=== PATIENT | male | born 2000 | race Caucasian/White ===

== ENCOUNTER 2020-12-20 03:22 | Emergency (ER) | payer SELFPAY ==
[~2020-12-20] VITALS: Ht 172.7 cm; Wt 130.0 kg
[2020-12-20 05:16] LABS: CLARITY URINE CLOUDY (CLEAR); COLOR URINE YELLOW (YELLOW); KETONES URINE TRACE (NEGATIVE); LEUKOCYTE ESTERASE URINE NEGATIVE (NEGATIVE); NITRITE URINE NEGATIVE (NEGATIVE); OCCULT BLOOD URINE NEGATIVE (NEGATIVE); PROTEIN URINE 2+ (NEGATIVE); SPECIFIC GRAVITY URINE 1.028 (1.005-1.030)
[2020-12-20 05:34] LABS: *AMPHETAMINES SCREEN URINE NEGATIVE (NEGATIVE); *BARBITURATES SCREEN URINE NEGATIVE (NEGATIVE); CANNABINOID URINE SCREEN NEGATIVE (NEGATIVE); PHENCYCLIDINE URINE SCREEN NEGATIVE (NEGATIVE)
[2020-12-20 05:35] LABS: *BENZODIAZEPINES SCREEN URINE NEGATIVE (NEGATIVE); *COCAINE SCREEN URINE NEGATIVE (NEGATIVE); METHADONE URINE SCREEN NEGATIVE (NEGATIVE); OPIATES URINE SCREEN NEGATIVE (NEGATIVE)
[2020-12-20 05:47] LABS: BASOPHILS % 0.7 % (0.0-2.0); EOSINOPHILS % 0.1 % (0.0-5.0); HEMATOCRIT. 48.8 % (42.0-52.0); HEMOGLOBIN. 16.7 g/dL (14.0-18.0); LYMPHOCYTES % 9.6 % (20.0-50.0); MEAN CORPUSCULAR HEMOGLOBIN 30.3 pg (28.0-32.0); MEAN CORPUSCULAR VOLUME 88.6 fL (80.0-94.0); MEAN PLATELET VOLUME 9.3 fl (7.4-10.4); MONOCYTES % 5.2 % (2.0-8.0); NEUTROPHILS % 84.4 % (40.0-76.0); PLATELET 250 x1000/uL (130-400); RED BLOOD CELL COUNT 5.51 mill/uL (4.7-6.1); RED CELL DISTRIBUTION WIDTH 13.3 % (11.6-14.6)
[2020-12-20 05:56] LABS: CHLORIDE 106 mEq/L (98-107)
[2020-12-20 06:02] LABS: ETHANOL BLOOD < 10 mg/dL
[2020-12-20] MEDS: OLANZAPINE 5MG TABLET PO SCH (10:43)
[2020-12-21] MEDS: OLANZAPINE 5MG TABLET PO SCH (09:24)
[2020-12-22] MEDS: OLANZAPINE 5MG TABLET PO SCH (09:57)
[2020-12-23] MEDS: OLANZAPINE 5MG TABLET PO SCH (10:16)
[2020-12-24] MEDS ORDERED: OLANZAPINE 5MG TABLET PO SCH (09:30)
[2020-12-24] MEDS: OLANZAPINE 5MG TABLET PO SCH ×2 (12:06→17:37)
[2020-12-25] MEDS: OLANZAPINE 5MG TABLET PO SCH (08:40)
[2020-12-25 16:17] VITALS: BP 124/66
== END 2020-12-25 16:21 | disposition home or self-care (01) ==
LOC: ER 03:22
DX: R46.2 Strange and inexplicable behavior (principal); R44.0 Auditory hallucinations; Z20.822 Contact with and (suspected) exposure to COVID-19; R45.1 Restlessness and agitation; R00.0 Tachycardia, unspecified; F43.9 Reaction to severe stress, unspecified; Z73.6 Limitation of activities due to disability; Z75.1 Person awaiting admission to adequate facility elsewhere
CPT/HCPCS: 36415; 80053; 80305; 80307; 80320; 80329; 81003; 84443; 85025; 99285; C9803; U0003; U0005; G0480

== ENCOUNTER 2023-02-03 21:19 | Emergency (ER) | payer MEDICAID, OTHER ==
[~2023-02-03] VITALS: Ht 170.2 cm; Wt 70.0 kg
[2023-02-03 21:27] VITALS: O2SAT 99
[2023-02-03] MEDS ORDERED: OLANZAPINE 10 MG/VIAL IM ONE (22:30)
[2023-02-03 22:37] LABS: BASOPHILS % 0.5 % (0.0-2.0); CLARITY URINE CLEAR (CLEAR); COLOR URINE YELLOW (YELLOW); EOSINOPHILS % 0.7 % (0.0-5.0); GLUCOSE URINE 3+ (NEGATIVE); HEMATOCRIT. 48.2 % (42.0-52.0); HEMOGLOBIN. 16.7 g/dL (14.0-18.0); KETONES URINE NEGATIVE (NEGATIVE); LEUKOCYTE ESTERASE URINE NEGATIVE (NEGATIVE); LYMPHOCYTES % 17.7 % (20.0-50.0); MEAN CORPUSCULAR HEMOGLOBIN 30.2 pg (28.0-32.0); MEAN CORPUSCULAR HGB CONC 34.7 g/dL (31.0-37.0); MEAN PLATELET VOLUME 9.4 fl (7.4-10.4); MONOCYTES % 11.2 % (2.0-8.0); NEUTROPHILS % 69.9 % (40.0-76.0); NITRITE URINE NEGATIVE (NEGATIVE); OCCULT BLOOD URINE NEGATIVE (NEGATIVE); PH URINE 5.5 (4.5-8.0); PLATELET 216 x1000/uL (130-400); PROTEIN URINE NEGATIVE (NEGATIVE); RED BLOOD CELL COUNT 5.54 mill/uL (4.7-6.1); RED CELL DISTRIBUTION WIDTH 13.4 % (11.6-14.6); SPECIFIC GRAVITY URINE 1.009 (1.005-1.030); UROBILINOGEN URINE 0.2 E.U./dL (0.2-1.0); WHITE BLOOD COUNT 8.7 x1000/uL (4.5-11.0)
[2023-02-03 22:40] LABS: BACTERIA URINE NONE SEEN; RBC URINE NONE SEEN /hpf (0-2); SQUAMOUS EPITHELIAL CELL URINE NONE SEEN /lpf (RARE/1+); WBC URINE NONE SEEN /hpf (0-2); YEAST URINE NONE SEEN
[2023-02-03 22:48] LABS: ACETAMINOPHEN 5 ug/mL (10-30); ALANINE AMINOTRANSFERASE 34 IU/L (10-49); ALBUMIN 4.4 g/dL (3.2-4.8); ASPARTATE AMINOTRANSFERASE 28 IU/L (<34); CALCIUM 9.1 mg/dL (8.7-10.4); CARBON DIOXIDE 22 mEq/L (21-32); CHLORIDE 103 mEq/L (98-107); CREATININE 0.8 mg/dL (0.6-1.3); GLUCOSE 95 mg/dL (70-105); PROTEIN TOTAL 6.7 g/dL (6.0-8.3); SODIUM 137 mEq/L (136-145); UREA NITROGEN BLOOD 5 mg/dL (9-23)
[2023-02-03 23:01] LABS: *AMPHETAMINES SCREEN URINE NEGATIVE (NEGATIVE); *BARBITURATES SCREEN URINE NEGATIVE (NEGATIVE); *BENZODIAZEPINES SCREEN URINE NEGATIVE (NEGATIVE); *COCAINE SCREEN URINE NEGATIVE (NEGATIVE); CANNABINOID URINE SCREEN PRESUMPTIVE POSITIVE (NEGATIVE); ECSTASY MDMA SCREEN URINE NEGATIVE (NEGATIVE); METHADONE URINE SCREEN Neg (NEGATIVE); OPIATES URINE SCREEN NEGATIVE (NEGATIVE); PHENCYCLIDINE URINE SCREEN NEGATIVE (NEGATIVE)
[2023-02-03 23:04] LABS: ETHANOL BLOOD < 10 mg/dL (<10)
[2023-02-04] MEDS ORDERED: POTASSIUM CHLORIDE 20MEQ/PACKET PO ONE (00:15)
[2023-02-04] MEDS ORDERED: OLANZAPINE 10 MG/VIAL IM NR (05:45)
[2023-02-04] MEDS: OLANZAPINE 5MG TABLET ODT PO SCH ×2 (12:00→17:00)
[2023-02-04 17:10] VITALS: BP 129/78; PULSE 90; RESP 16; TEMP 98
== END 2023-02-04 18:10 | disposition short-term general hospital (02) ==
LOC: ER 21:19
DX: R45.1 Restlessness and agitation (principal); I49.9 Cardiac arrhythmia, unspecified; Z86.59 Personal history of other mental and behavioral disorders; Z20.822 Contact with and (suspected) exposure to COVID-19
CPT/HCPCS: 80053; 80305; 81003; 80307; 80329; 80320; 85025; 36415; 93005; 99285; 87426; 96372; C9803; J3490; Z7610; G0480

== ENCOUNTER 2024-02-15 08:55 | Emergency (ER) | payer OTHER, MEDICAID ==
[~2024-02-15] VITALS: Ht 177.8 cm; Wt 120.0 kg
[2024-02-15 08:59] VITALS: O2SAT 100
[2024-02-15] MEDS: OLANZAPINE 10 MG/VIAL IM STA (13:40)
[2024-02-15] MEDS: LORAZEPAM 2MG/ML INJ IM STA (13:44)
[2024-02-15 14:45] LABS: BASOPHILS % 0.4 % (0.0-2.0); EOSINOPHILS % 0.5 % (0.0-5.0); HEMATOCRIT. 49.5 % (42.0-52.0); HEMOGLOBIN. 16.7 g/dL (14.0-18.0); LYMPHOCYTES % 18.5 % (20.0-50.0); MEAN CORPUSCULAR HEMOGLOBIN 29.7 pg (28.0-32.0); MEAN CORPUSCULAR HGB CONC 33.8 g/dL (31.0-37.0); MEAN CORPUSCULAR VOLUME 87.9 fL (80.0-94.0); MEAN PLATELET VOLUME 9.4 fl (7.4-10.4); MONOCYTES % 7.9 % (2.0-8.0); NEUTROPHILS % 72.7 % (40.0-76.0); PLATELET 238 x1000/uL (130-400); RED BLOOD CELL COUNT 5.63 mill/uL (4.7-6.1); RED CELL DISTRIBUTION WIDTH 13.8 % (11.6-14.6); WHITE BLOOD COUNT 14.5 x1000/uL (4.5-11.0)
[2024-02-15 14:53] LABS: CHLORIDE 104 mEq/L (98-107); POTASSIUM 3.6 mEq/L (3.5-5.1); SODIUM 141 mEq/L (136-145)
[2024-02-15 14:54] LABS: CARBON DIOXIDE 24 mEq/L (21-32)
[2024-02-15 14:55] LABS: CALCIUM 9.4 mg/dL (8.7-10.4)
[2024-02-15 14:59] LABS: CREATININE 0.8 mg/dL (0.6-1.3); GLUCOSE 80 mg/dL (70-105)
[2024-02-15 15:00] LABS: UREA NITROGEN BLOOD 10 mg/dL (9-23)
[2024-02-15 15:01] LABS: ACETAMINOPHEN < 2 ug/mL (10-30)
[2024-02-15 15:06] LABS: ETHANOL BLOOD < 10 mg/dL (<10)
[2024-02-15 23:42] LABS: CLARITY URINE CLEAR (CLEAR); COLOR URINE DARK YELLOW (YELLOW); GLUCOSE URINE NEGATIVE (NEGATIVE); KETONES URINE 1+ (NEGATIVE); LEUKOCYTE ESTERASE URINE NEGATIVE (NEGATIVE); NITRITE URINE NEGATIVE (NEGATIVE); OCCULT BLOOD URINE NEGATIVE (NEGATIVE); PROTEIN URINE 1+ (NEGATIVE); SPECIFIC GRAVITY URINE 1.038 (1.005-1.030)
[2024-02-15 23:50] LABS: *AMPHETAMINES SCREEN URINE NEGATIVE (NEGATIVE); *BARBITURATES SCREEN URINE NEGATIVE (NEGATIVE); *BENZODIAZEPINES SCREEN URINE NEGATIVE (NEGATIVE); *COCAINE SCREEN URINE NEGATIVE (NEGATIVE); CANNABINOID URINE SCREEN PRESUMPTIVE POSITIVE (NEGATIVE); ECSTASY MDMA SCREEN URINE NEGATIVE (NEGATIVE); METHADONE URINE SCREEN NEGATIVE (NEGATIVE); OPIATES URINE SCREEN NEGATIVE (NEGATIVE); PHENCYCLIDINE URINE SCREEN NEGATIVE (NEGATIVE)
[2024-02-16 00:17] LABS: SQUAMOUS EPITHELIAL CELL URINE NONE SEEN /lpf (RARE/1+)
[2024-02-16 00:19] LABS: BACTERIA URINE NONE SEEN; RBC URINE 0-2 /hpf (0-2)
[2024-02-16] MEDS: HALOPERIDOL LACTATE 5MG/ML VIAL IM STA (06:22)
[2024-02-16] MEDS: LORAZEPAM 2MG/ML INJ IM STA (06:22)
[2024-02-16] MEDS: DIPHENHYDRAMINE 50MG/ML VIAL IM STA (06:22)
[2024-02-16] MEDS: LORAZEPAM 2MG/ML INJ IM ONE (20:21)
[2024-02-16] MEDS: DIPHENHYDRAMINE 50MG/ML VIAL IM ONE (20:22)
[2024-02-16] MEDS: HALOPERIDOL LACTATE 5MG/ML VIAL IM ONE (20:22)
[2024-02-17 00:55] VITALS: BP 136/84; PULSE 82; RESP 18; TEMP 36.78072; O2SAT 99
== END 2024-02-17 01:22 ==
LOC: ER 08:55
DX: R46.2 Strange and inexplicable behavior (principal); Z20.822 Contact with and (suspected) exposure to COVID-19
CPT/HCPCS: 80305; 80048; 81003; 80307; 80329; 80320; 85025; 36415; 96372 ×2; 99285; 87426; J3490; J2060 ×2; Z7610; J1200; J1630; G0480